=== PATIENT | male | born 1985 | race Caucasian/White ===

== ENCOUNTER 2022-04-03 00:04 | Emergency (ER) | payer MEDICAID | END 2022-04-03 00:49 | disposition left against medical advice (07) | LOC: JP.ED 00:04 | DX: F10.220 Alcohol dependence with intoxication, uncomplicated (principal); I10 Essential (primary) hypertension; F41.9 Anxiety disorder, unspecified; F32.A Depression, unspecified; E66.9 Obesity, unspecified; Z68.41 Body mass index [BMI] 40.0-44.9, adult; Z79.899 Other long term (current) drug therapy | CPT/HCPCS: 99283 ==

== ENCOUNTER 2022-04-03 02:32 | Emergency (ER) | payer MEDICAID ==
[2022-04-03 03:31] LABS: ESTIMATED GFR 116 mL/min (>60)
[2022-04-03] MEDS ORDERED: Ciprofloxacin 500 MG Tab PO ONE (06:53)
== END 2022-04-03 09:09 | disposition other institution (70) ==
LOC: JP.ED 02:32
DX: N30.01 Acute cystitis with hematuria (principal); F10.129 Alcohol abuse with intoxication, unspecified; I10 Essential (primary) hypertension; E66.9 Obesity, unspecified; F17.210 Nicotine dependence, cigarettes, uncomplicated; Z68.43 Body mass index [BMI] 50.0-59.9, adult; Z79.899 Other long term (current) drug therapy
CPT/HCPCS: 36415; 80053; 80305; 80307; 81001; 85025; 87635; 99284; A9270; U0002